=== PATIENT | male | born 1950 | race Caucasian/White ===

== ENCOUNTER 2018-01-28 13:01 | Emergency (ER) | payer BC ==
[~2018-01-28] VITALS: Ht 180.3 cm; Wt 105.5 kg
[~2018-01-28 13:01] MED LIST: CIPR-255 PO; HYDR-3419 PO; LEVO-217 PO; SERT-234 PO; TAMS0.4C59 PO
[2018-01-28 13:17] VITALS: TEMP 36.8; Ht 180.3 cm; Wt 105.5 kg
[2018-01-28] MEDS ORDERED: SODIUM CHLORIDE 0.9% 1000ML 1,000 ML IV STA (13:56)
--- NOTE | 2018-01-28 13:58 | EMERGENCY ROOM VISIT NOTE ---
History Report prepared by Coco: Ayaz Michele Under the Supervision of: Dr. Saleem Garcia M.D. First contact with patient: 13:25 Chief Complaint: SYNCOPE Stated Complaint: FAINTING History of Present Illness The patient is a 67 year old male who presents to the Emergency Room due to a near syncopal episode with vertigo that occurred this morning. Patient states that the episode occurred this morning after doing floor exercises for his back. He states that he walked into the kitchen after performing the exercises and started to feel like the room was spinning. He states that he put his hand on the counter and fell to the floor slowly. He states that he got up from the floor after falling but the "dizziness and room spinning" feeling came back so he sat back down on the ground. He adds that he has been dizzy since he has been in the ER. Patient adds that he "did not hydrate himself normally last night". Patient adds that he has a history of hitting his head. He states that the latest time was a couple of days ago. Patient states that during that episode he hit his head on a shelf. Patient states that a couple of weeks ago he also hit his head on a tree limb. He states that he did not pass out after hitting his head. Patient states that he has chronic dizziness. He states that the dizziness might be due to an inner ear infection 20 years ago. He states that doctors believed that the dizziness was due to scarring. He states that dizziness can be exacerbated with stress. He states that he takes 100mg of Zoloft. Patient denies nausea, fevers, chills, cough, congestion, chest pain, and shortness of breath. Source of History: patient Onset: This morning Position: head Modifying Factors (Worsening): other (Standing up) Modifying Factors (Relieving): other (None) Associated Symptoms: No fevers, No chills, No chest pain, No SOB, No nausea , No vomiting Note: Patient has dizziness. Review of Systems See HPI for pertinent positives and negatives. A total of ten systems were reviewed and were otherwise negative. Past Medical & Surgical Medical Problems: (1) Inner ear infection Family History No pertinent family history. Social History Smoking Status: Never Smoker Housing Status: lives with family Current/Historical Medications Scheduled Acetaminophen/Diphenhydramine (Tylenol Pm), 1 TAB PO HS Levothyroxine Sodium (Levothyroxine Sodium), 1 TAB PO QAM Sertraline (Zoloft), 100 MG PO QAM Scheduled PRN Meclizine Hcl (Meclizine Hcl), 25 MG PO TID PRN for Dizziness Allergies Coded Allergies: No Known Allergies (Verified , 01/28/18) Physical Exam Vital Signs Date Time Temp Pulse Resp B/P (MAP) Pulse Ox O2 Delivery O2 Flow Rate FiO2 01/28/18 17:16 59 18 139/84 97 01/28/18 16:24 59 14 139/78 96 Room Air 01/28/18 14:12 96 Room Air 01/28/18 14:12 62 140/86 66 146/71 71 152/92 01/28/18 13:50 72 01/28/18 13:17 36.8 92 20 125/88 96 Room Air Physical Exam GENERAL: Awake, alert, fatigued-appearing, in no distress HENT: Normocephalic, atraumatic. Oropharynx unremarkable other than dry mucous membranes. EYES: Normal conjunctiva. Sclera non-icteric. No nystagmus. NECK: Supple. No nuchal rigidity. FROM. No JVD. RESPIRATORY: Clear to auscultation. CARDIAC: Regular rate, normal rhythm. Extremities warm and well perfused. Pulses equal. ABDOMEN: Soft, non-distended. No tenderness to palpation. No rebound or guarding. No masses. RECTAL: Deferred. MUSCULOSKELETAL: Chest examination reveals no tenderness. The back is symmetrical on inspection without obvious abnormality. There is no CVA tenderness to palpation. No joint edema. LOWER EXTREMITIES: Calves are equal size bilaterally and non-tender. No edema. No discoloration. NEURO: Normal sensorium. No sensory or motor deficits noted. Normal cerebellar function with [id number], alternating palms, [id number]. SKIN: No rash or jaundice noted. Medical Decision & Procedures ER Provider Diagnostic Interpretation: Radiology results as stated below per my review and radiologist interpretation: NECK ANGIO WITH CONTRAST CLINICAL HISTORY: 67 years-old Male presenting with vertigo. TECHNIQUE: Multidetector CT angiography of the neck was performed after the administration of intravenous contrast. 3-D volumetric and/or maximum intensity projection (MIP) images were subsequently reconstructed for review. IV contrast: 94 mL of Optiray 320. A dose lowering technique was used consistent with the principles of ALARA (as low as reasonably achievable). Stenosis measurements were based on NASCET-like criteria. COMPARISON: None. CT DOSE (mGy.cm): The estimated cumulative dose is 1348.42. FINDINGS: [employer] topogram: Unremarkable. Aortic arch: Atherosclerosis of the four-vessel aortic arch. Innominate artery: Patent. Right common carotid artery: Patent. Right internal and external carotid arteries: Right carotid bifurcation patent. Right internal and external carotid arteries widely patent. Left common carotid artery: Patent. Left internal and external carotid arteries: Left carotid bifurcation patent. Left internal and external carotid arteries widely patent. Left subclavian artery: Patent. Vertebral arteries: Left dominant vertebral artery. Origins and courses of the bilateral vertebral arteries patent. Other: Mucosal thickening of posterior ethmoid air cells. Limited intracranial evaluation within normal limits. Soft tissues of the neck normal allowing for the phase of contrast. Degenerative changes of the cervical spine. Mosaic attenuation could suggest small airways disease. IMPRESSION: 1. No evidence of dissection, focal vessel occlusion, or significant stenosis of the cervical arteries. Electronically signed by: Mele Nolen M.D. 01/28/2018 4:25 PM CHEST ONE VIEW PORTABLE CLINICAL HISTORY: EVALUATE ALTERED MENTAL STATUS/WEAKNESS pain COMPARISON STUDY: 08/08/2008 FINDINGS: The bones soft tissues and hemidiaphragms are normal. The cardiomediastinal silhouette is normal. The lungs are clear. The pulmonary vasculature is normal. IMPRESSION: Negative chest. The above report was generated using voice recognition software. It may contain grammatical, syntax or spelling errors. Electronically signed by: Bobo Thomason M.D. 01/28/2018 2:21 PM ANGIOGRAPHY HEAD COMBO CLINICAL HISTORY: 67 years-old Male presents with acute vertigo COMPARISON STUDY: CTA neck of same day TECHNIQUE: Unenhanced axial CT scan of the brain is performed. Subsequently, following the IV administration of 94 cc of Optiray 320, CT angiogram of the brain was performed from the skull base to the vertex. Images are reviewed in the axial, sagittal, and coronal planes. 3-D MIPS images are created and assessed. IV contrast was administered without complication. A dose lowering technique was utilized adhering to the principles of ALARA. CT DOSE: 1348.42 mGy.cm FINDINGS: CT BRAIN: There is no acute intracranial hemorrhage, midline shift, hydrocephalus, intracranial mass, territorial ischemia or abnormal extra-axial collections. No abnormal intra-axial or extra-axial enhancement. Mastoid air cells and middle ear cavities are clear. No calvarial fracture. Minimal mucosal thickening of the maxillary sinuses with mild to moderate ethmoid sinus disease.. Indeterminate 5 mm metallic radiodensity foreign body involves the prefrontal subcutaneous soft tissues near the midline on image [address] ANGIOGRAM OF THE BRAIN: The imaged bilateral internal carotid arteries are patent. The bilateral anterior and middle cerebral arteries are also patent. The vertebrobasilar system and posterior cerebral arteries are widely patent. The left vertebral artery is dominant. The right vertebral artery is diminutive in size with the majority of the vessel terminating into the right PICA. Basilar artery is also mildly diminutive in size with origin of the right posterior cerebral artery. Anterior communicating artery is unremarkable. There is no aneurysm, high-grade stenosis, or proximal branch occlusion identified. Dural sinuses appear patent. IMPRESSION: 1. No acute intracranial abnormality identified. 2. Unremarkable CTA of the head without aneurysm, dissection, high-grade stenosis, or proximal branch occlusion. 3. Paranasal sinus disease as above. The above report was generated using voice recognition software. It may contain grammatical, syntax or spelling errors. Electronically signed by: Johnnie Gaviria M.D. 01/28/2018 4:34 PM Laboratory Results 01/28/18 14:05 Red Blood Count 4.50, Mean Corpuscular Volume 94.0, Mean Corpuscular Hemoglobin 32.9, Mean Corpuscular Hemoglobin Concent 35.0, Mean Platelet Volume 9.9, Neutrophils (%) (Auto) 50.7, Lymphocytes (%) (Auto) 36.2, Monocytes (%) (Auto) 8.3, Eosinophils (%) (Auto) 4.1, Basophils (%) (Auto) 0.4, Neutrophils # (Auto) 3.61, Lymphocytes # (Auto) 2.58, Monocytes # (Auto) 0.59, Eosinophils # (Auto) 0.29, Basophils # (Auto) 0.03 01/28/18 14:05 Test 01/28/18 14:05 White Blood Count 7.12 K/uL (4.8-10.8) Red Blood Count 4.50 M/uL (4.7-6.1) Hemoglobin 14.8 g/dL (14.0-18.0) Hematocrit 42.3 % (42-52) Mean Corpuscular Volume 94.0 fL (80-100) Mean Corpuscular Hemoglobin 32.9 pg (25-34) Mean Corpuscular Hemoglobin Concent 35.0 g/dl (32-36) Platelet Count 176 K/uL (130-400) Mean Platelet Volume 9.9 fL (7.4-10.4) Neutrophils (%) (Auto) 50.7 % Lymphocytes (%) (Auto) 36.2 % Monocytes (%) (Auto) 8.3 % Eosinophils (%) (Auto) 4.1 % Basophils (%) (Auto) 0.4 % Neutrophils # (Auto) 3.61 K/uL (1.4-6.5) Lymphocytes # (Auto) 2.58 K/uL (1.2-3.4) Monocytes # (Auto) 0.59 K/uL (0.11-0.59) Eosinophils # (Auto) 0.29 K/uL (0-0.5) Basophils # (Auto) 0.03 K/uL (0-0.2) RDW Standard Deviation 45.1 fL (36.4-46.3) RDW Coefficient of Variation 13.1 % (11.5-14.5) Immature Granulocyte % (Auto) 0.3 % Immature Granulocyte # (Auto) 0.02 K/uL (0.00-0.02) Urine Color DK YELLOW Urine Appearance CLEAR (CLEAR) Urine pH 7.5 (4.5-7.5) Urine Specific [place] 1.024 (1.000-1.030) Urine Protein NEG (NEG) Urine Glucose (UA) NEG (NEG) Urine Ketones NEG (NEG) Urine Occult Blood NEG (NEG) Urine Nitrite NEG (NEG) Urine Bilirubin NEG (NEG) Urine Urobilinogen NEG (NEG) Urine Leukocyte Esterase NEG (NEG) Anion Gap 4.0 mmol/L (3-11) Est Creatinine Clear Calc Drug Dose 74.9 ml/min Estimated GFR () 74.8 Estimated GFR (Non- 64.6 BUN/Creatinine Ratio 15.4 (10-20) Calcium Level 8.3 mg/dl (8.5-10.1) Magnesium Level 2.1 mg/dl (1.8-2.4) Total Bilirubin 0.4 mg/dl (0.2-1) Direct Bilirubin < 0.1 mg/dl (0-0.2) Aspartate Amino Transf (AST/SGOT) 16 U/L (15-37) Alanine Aminotransferase (ALT/SGPT) 25 U/L (12-78) Alkaline Phosphatase 72 U/L (45-117) Troponin I < 0.015 ng/ml (0-0.045) Total Protein 7.2 gm/dl (6.4-8.2) Albumin 3.5 gm/dl (3.4-5.0) Thyroid Stimulating Hormone (TSH) 0.571 uIu/ml (0.300-4.500) Laboratory results reviewed by me Medications Administered Medications (Trade) Dose Ordered Sig/Geovanni Route Start Time Stop Time Status Last Admin Dose Admin Sodium Chloride 1,000 ml @ 999 mls/hr Q1H1M STAT IV 01/28/18 13:56 01/28/18 14:56 DC 01/28/18 14:12 999 MLS/HR ECG Per My Interpretation Indication: syncope Rate (beats per minute): 66 Rhythm: normal sinus Findings: no acute ischemic change, other (Normal axis) ED Course 1326: The patient was evaluated in room C9. A complete history and physical exam was performed. 1423: I reassessed the patient. He states that he is feeling better. 1640: I reevaluated the patient. Discussed results and discharge instructions. He verbalized understanding and agreement. The patient is ready for discharge. Medical Decision I reviewed the patient's past medical history, medications, and the nursing notes as described above. Differential diagnosis: Etiologies such as vasovagal event, infection, hypoglycemia, electrolyte abnormalities, cardiac sources, intracerebral event, toxicologic, neurologic, as well as others were entertained. The patient is a 67-year-old gentleman with a past medical history of vertigo who presents emergency department with episode of vertigo and near syncope per hpi. Of note, the patient reports not drinking much water recently. On arrival the patient is fatigued appearing but no acute distress, afebrile stable vital signs. On exam the patient appears clinically dry. He exhibits no nystagmus, however, does feel worsening dizziness when sitting up. He is neuro intact including normal cerebellar function with nhhaaj-[id number], alternating palms, [id number]-[id number]. EKG unremarkable. Labs unremarkable including WBC and troponin within normal limits. UA negative. The patient reports he is unable to have an MRI due to metal fragments in his skull. Thus, CTA of the head and neck was ordered and was unremarkable demonstrating no large vessel occlusion or infarction. Patient feeling improved after IV fluid hydration. Symptoms possibly related to mild dehydration provoking the patient' s chronic vertigo. Plan for PCP follow-up. Findings and plan for follow-up reviewed with patient. Patient agreeable and d/c'd per discharge instructions. Medication Reconcilliation Current Medication List: was personally reviewed by me Blood Pressure Screening Patient's blood pressure: Elevated blood pressure Blood pressure disposition: Elevated BP felt to be situational Impression Primary Impression: Vertigo Scribe Attestation The scribe's documentation has been prepared under my direction and personally reviewed by me in its entirety. I confirm that the note above accurately reflects all work, treatment, procedures, and medical decision making performed by me. Departure Information Dispostion Home / Self-Care Prescriptions Meclizine Hcl (MECLIZINE HCL) 25 Mg Tab 25 MG PO TID Y for Dizziness, #21 TAB Prov: Saleem Garcia M.D. 01/28/18 Referrals Fernando Cummings M.D. (PCP) Forms HOME CARE DOCUMENTATION FORM, IMPORTANT VISIT INFORMATION Patient Instructions ED Vertigo Unspecified, My [facility] Additional Instructions Please follow up with your primary care physician in the next 1-3 days for re- evaluation. Your symptoms are likely related to mild dehydration provoking your prior history of vertigo. Otherwise, your exam, EKG, chest xray, lab results, and CT scan of your head and neck with contrast did not show signs of an emergent condition at this time. Meclizine as needed for vertigo. Drink plenty of fluids to ensure hydration. Return to the emergency department for worsening symptoms as described in the accompanying instructions.
[2018-01-28] MEDS ORDERED: OPTIRAY 320 IV PRN (14:00)
[2018-01-28 14:12] VITALS: O2SAT 96
--- NOTE | 2018-01-28 14:23 | DIAGNOSTIC IMAGING REPORT ---
CHEST ONE VIEW PORTABLE CLINICAL HISTORY: EVALUATE ALTERED MENTAL STATUS/WEAKNESS pain COMPARISON STUDY: 08/08/2008 FINDINGS: The bones soft tissues and hemidiaphragms are normal. The cardiomediastinal silhouette is normal. The lungs are clear. The pulmonary vasculature is normal. IMPRESSION: Negative chest. The above report was generated using voice recognition software. It may contain grammatical, syntax or spelling errors. Electronically signed by: Bobo Thomason M.D. 01/28/2018 2:21 PM Dictated Date/Time: 01/28/2018 2:21 PM
[2018-01-28 14:29] LABS: BASO % 0.4 %; BASO ABS # 0.03 K/uL (0-0.2); EOS % 4.1 %; EOS ABS # 0.29 K/uL (0-0.5); HEMATOCRIT 42.3 % (42-52); HEMOGLOBIN 14.8 g/dL (14.0-18.0); IG# 0.02 K/uL (0.00-0.02); LYMPH % 36.2 %; LYMPH ABS # 2.58 K/uL (1.2-3.4); MEAN CORPUSCULAR HEMOGLOBIN 32.9 pg (25-34); MEAN PLATELET VOLUME 9.9 fL (7.4-10.4); MONO % 8.3 %; MONO ABS # 0.59 K/uL (0.11-0.59); NEUT % 50.7 %; NEUT ABS # 3.61 K/uL (1.4-6.5); PLATELET COUNT 176 K/uL (130-400); RED CELL DISTRIBUTION WIDTH CV 13.1 % (11.5-14.5); RED CELL DISTRIBUTION WIDTH SD 45.1 fL (36.4-46.3); WHITE BLOOD COUNT 7.12 K/uL (4.8-10.8)
[2018-01-28] MEDS ORDERED: DIPH-437 PO (14:36)
[2018-01-28] MEDS ORDERED: LEVO125T5 PO (14:43)
[2018-01-28 15:03] LABS: ALBUMIN 3.5 gm/dl (3.4-5.0); ALT/SGPT 25 U/L (12-78); AST/SGOT 16 U/L (15-37); BLOOD UREA NITROGEN 18 mg/dl (7-18); CALCIUM 8.3 mg/dl (8.5-10.1); CARBON DIOXIDE 28 mmol/L (21-32); CREATININE 1.15 mg/dl (0.60-1.40); GLUCOSE 73 mg/dl (70-99); POTASSIUM 4.5 mmol/L (3.5-5.1); SODIUM 140 mmol/L (136-145)
[2018-01-28 15:14] LABS: ALKALINE PHOSPHATASE 72 U/L (45-117); TOTAL PROTEIN 7.2 gm/dl (6.4-8.2)
--- NOTE | 2018-01-28 16:26 | DIAGNOSTIC IMAGING REPORT ---
NECK ANGIO WITH CONTRAST CLINICAL HISTORY: 67 years-old Male presenting with vertigo. TECHNIQUE: Multidetector CT angiography of the neck was performed after the administration of intravenous contrast. 3-D volumetric and/or maximum intensity projection (MIP) images were subsequently reconstructed for review. IV contrast: 94 mL of Optiray 320. A dose lowering technique was used consistent with the principles of ALARA (as low as reasonably achievable). Stenosis measurements were based on NASCET-like criteria. COMPARISON: None. CT DOSE (mGy.cm): The estimated cumulative dose is 1348.42. FINDINGS: [employer] topogram: Unremarkable. Aortic arch: Atherosclerosis of the four-vessel aortic arch. Innominate artery: Patent. Right common carotid artery: Patent. Right internal and external carotid arteries: Right carotid bifurcation patent. Right internal and external carotid arteries widely patent. Left common carotid artery: Patent. Left internal and external carotid arteries: Left carotid bifurcation patent. Left internal and external carotid arteries widely patent. Left subclavian artery: Patent. Vertebral arteries: Left dominant vertebral artery. Origins and courses of the bilateral vertebral arteries patent. Other: Mucosal thickening of posterior ethmoid air cells. Limited intracranial evaluation within normal limits. Soft tissues of the neck normal allowing for the phase of contrast. Degenerative changes of the cervical spine. Mosaic attenuation could suggest small airways disease. IMPRESSION: 1. No evidence of dissection, focal vessel occlusion, or significant stenosis of the cervical arteries. Electronically signed by: Mele Nolen M.D. 01/28/2018 4:25 PM Dictated Date/Time: 01/28/2018 4:22 PM
--- NOTE | 2018-01-28 16:36 | DIAGNOSTIC IMAGING REPORT ---
ANGIOGRAPHY HEAD COMBO CLINICAL HISTORY: 67 years-old Male presents with acute vertigo COMPARISON STUDY: CTA neck of same day TECHNIQUE: Unenhanced axial CT scan of the brain is performed. Subsequently, following the IV administration of 94 cc of Optiray 320, CT angiogram of the brain was performed from the skull base to the vertex. Images are reviewed in the axial, sagittal, and coronal planes. 3-D MIPS images are created and assessed. IV contrast was administered without complication. A dose lowering technique was utilized adhering to the principles of ALARA. CT DOSE: 1348.42 mGy.cm FINDINGS: CT BRAIN: There is no acute intracranial hemorrhage, midline shift, hydrocephalus, intracranial mass, territorial ischemia or abnormal extra-axial collections. No abnormal intra-axial or extra-axial enhancement. Mastoid air cells and middle ear cavities are clear. No calvarial fracture. Minimal mucosal thickening of the maxillary sinuses with mild to moderate ethmoid sinus disease.. Indeterminate 5 mm metallic radiodensity foreign body involves the prefrontal subcutaneous soft tissues near the midline on image [address] ANGIOGRAM OF THE BRAIN: The imaged bilateral internal carotid arteries are patent. The bilateral anterior and middle cerebral arteries are also patent. The vertebrobasilar system and posterior cerebral arteries are widely patent. The left vertebral artery is dominant. The right vertebral artery is diminutive in size with the majority of the vessel terminating into the right PICA. Basilar artery is also mildly diminutive in size with origin of the right posterior cerebral artery. Anterior communicating artery is unremarkable. There is no aneurysm, high-grade stenosis, or proximal branch occlusion identified. Dural sinuses appear patent. IMPRESSION: 1. No acute intracranial abnormality identified. 2. Unremarkable CTA of the head without aneurysm, dissection, high-grade stenosis, or proximal branch occlusion. 3. Paranasal sinus disease as above. The above report was generated using voice recognition software. It may contain grammatical, syntax or spelling errors. Electronically signed by: Johnnie Gaviria M.D. 01/28/2018 4:34 PM Dictated Date/Time: 01/28/2018 4:27 PM
[2018-01-28] MEDS ORDERED: MECL1TAB42 PO (16:52)
[2018-01-28 17:16] VITALS: BP 139/84; PULSE 59; O2SAT 97
== END 2018-01-28 17:17 | disposition home or self-care (01) ==
LOC: C.EDB 13:02 → C.EDC 17:17
DX: R42 Dizziness and giddiness (principal)